=== PATIENT | male | born 1960 | race Caucasian/White ===

== ENCOUNTER 2019-05-31 15:43 | Outpatient (CLI) | payer MEDICARE ==
--- NOTE | 2019-05-31 16:02 | RAD ---
Exam: Chest 2 views HISTORY:Asthmatic bronchitis Comparison: 06/07/2013 FINDINGS: Lungs: No masses or consolidation. There is granulomatous calcification of the right lung, stable Radiopaque densities are again seen overlying the left axilla. Cardiac silhouette: Mild Enlargement Pulmonary vessels: Normal Pleural Spaces: Clear Pneumothorax: None Osseous abnormalities: None of acuity. IMPRESSION: Stable chest
== END 2019-05-31 15:44 | disposition home or self-care (01) ==
LOC: MADRAD 15:43
PROVIDERS: ATTEND Family Medicine
DX: J45.909 Unspecified asthma, uncomplicated (principal)
CPT/HCPCS: 71046

== ENCOUNTER 2020-02-09 01:24 | Emergency (ER) | payer MEDICARE ==
[2020-02-09] MEDS ORDERED: Acetaminophen/Codeine 30-300mg Tablet ONE (01:50)
--- NOTE | 2020-02-09 07:42 | RAD ---
EXAM: 3 views of the right ankle HISTORY: Right ankle pain after fall COMPARISON: None FINDINGS: 3 views of the right ankle shows a fracture of the distal fibula. There is widening of the medial clear space of the ankle. Moderate diffuse soft tissue tissue swelling is seen. No degenerative changes are present. IMPRESSION: Distal fibular fracture with slight malalignment of the tibiotalar joint
== END 2020-02-09 02:34 | disposition home or self-care (01) ==
LOC: MADERS 01:24
DX: S82.831A Other fracture of upper and lower end of right fibula, initial encounter for closed fracture (principal); I48.91 Unspecified atrial fibrillation; E78.5 Hyperlipidemia, unspecified; I10 Essential (primary) hypertension; F17.210 Nicotine dependence, cigarettes, uncomplicated; W18.30XA Fall on same level, unspecified, initial encounter

== ENCOUNTER 2021-03-20 15:08 | Outpatient (CLI) | payer MEDICARE | END 2021-03-20 15:09 | disposition home or self-care (01) | LOC: MADRAD 15:08 | PROVIDERS: ATTEND Family Medicine | DX: R05 Cough (principal) | CPT/HCPCS: 71046 ==

== ENCOUNTER 2021-06-29 18:43 | Emergency (ER) | payer MEDICARE ==
[2021-06-29] MEDS ORDERED: Sodium Chloride 0.9% 100 ML BAG IVPB ONE (18:44)
[2021-06-29] MEDS ORDERED: Iopamidol 370 76% 125 ML VIAL FS ONE (18:44)
[2021-06-29 19:28] LABS: INR-International Normal Ratio 0.9; PTT 25.1 sec (22.9-36.1); Prothrombin Time 12.4 sec (12.0-14.7)
[2021-06-29 19:33] LABS: #Basophils 0.1 thou/uL (0.0-0.2); #Eosinphils 0.1 thou/uL (0.0-0.7); #Lymphocytes 3.1 thou/uL (1.20-3.40); #Monocytes 0.8 thou/uL (0.11-0.59); #Neutrophils 4.4 thou/uL (1.40-6.50); %Basophils 1.4 % (0.0-1.0); %Eosinophils 1.7 % (0.0-10.0); %Lymphocytes 36.3 % (21.0-51.0); %Monocytes 9.1 % (0.0-10.0); %Neutrophils 51.5 % (42.0-75.0); Hemoglobin 15.4 g/dL (14.0-18.0); Mean Corpuscular HGB CONC 32.6 g/dL (32.0-36.0); Mean Corpuscular Hemoglobin 32.6 pg (27.0-31.0); Mean Corpuscular Volume 99.9 fL (78.0-98.0); Mean Platelet Volume 6.1 fL (7.4-10.4); Platelet Count 255 thou/uL (130-400); Red Blood Cell (RBC) Count 4.73 mill/uL (4.70-6.10); White Blood Cell (WBC) Count 8.6 thou/uL (4.8-10.8)
[2021-06-29 19:40] LABS: ALT (SGPT) 54 U/L (8-55); AST (SGOT) 38 U/L (5-34); Albumin 4.3 g/dL (3.5-5.0); Alkaline Phosphatase 60 U/L (40-110); Anion Gap 18 mmol/L (10-20); BUN (Urea Nitrogen) 15 mg/dL (8.4-25.7); Bilirubin, Total 0.8 mg/dL (0.2-1.2); CK (CPK) 33 U/L (30-200); Calc. Creatinine Clearance 0 mL/min (70-130); Calcium 10.3 mg/dL (7.8-10.44); Carbon Dioxide 23 mmol/L (22-29); Chloride 99 mmol/L (98-107); Globulin 2.9 g/dL (2.4-3.5); Glucose 153 mg/dL (70-105); Protein, Total 7.2 g/dL (6.0-8.3); Sodium 136 mmol/L (136-145)
[2021-06-29 19:41] LABS: CKMB 1.4 ng/mL (0-6.6)
[2021-06-29] MEDS ORDERED: Sodium Chloride 0.9% 500 ML ONE (19:52)
[2021-06-29 20:50] LABS: Bilirubin Negative (Negative); Blood, Urine Negative (Negative); Clarity Clear (Clear); Glucose, Urine (Dipstick) Negative (Negative); Ketone, Urine Negative (Negative); Leukocyte Negative (Negative); Nitrite Negative (Negative); Protein, Urine (Dipstick) Negative (Neg-Trace); Urobilinogen 0.2 mg/dL (Less than 2); pH, Urine 5.5 (5.0-9.0)
[2021-06-29 20:51] LABS: Specific Gravity, Urine 1.026 (1.002-1.036)
[2021-06-29 21:00] LABS: Amphetamine Not Detected (NotDetected); Barbiturates Screen Not Detected (NotDetected); Benzodiazepine Screen Detected (NotDetected); Cocaine Metabolite Screen Not Detected (NotDetected); Medtox Control Line Valid? VALID (VALID); Methadone Not Detected (NotDetected); Methamphetamine Not Detected (NotDetected); Opiate Screen Not Detected (NotDetected); Oxycodone Screen Not Detected (NotDetected); Phencyclidine (PCP) Not Detected (NotDetected); THC/Cannabinoid Screen Not Detected (NotDetected); Tricyclic Screen Not Detected (NotDetected)
== END 2021-06-29 21:30 | disposition home or self-care (01) ==
LOC: MADERS 18:43
DX: R55 Syncope and collapse (principal); I65.23 Occlusion and stenosis of bilateral carotid arteries; I10 Essential (primary) hypertension; I48.91 Unspecified atrial fibrillation; E78.5 Hyperlipidemia, unspecified; Z87.891 Personal history of nicotine dependence; Z79.899 Other long term (current) drug therapy
CPT/HCPCS: 70450; 70496; 70498; 71045; 80053; 80306; 81003; 82550; 82553; 83880; 84484; 85025; 85610; 85730; 93005; J3490; J7030; Q9967

== ENCOUNTER 2022-09-12 18:31 | Emergency (ER) | payer MEDICARE ==
[2022-09-12 20:12] LABS: Band 12 % (5-11); Hemoglobin 15.2 g/dL (14.0-18.0); Lymphocytes 19 % (21-51); MDiff Complete? YES; Mean Corpuscular HGB CONC 33.6 g/dL (32.0-36.0); Mean Corpuscular Hemoglobin 31.3 pg (27.0-31.0); Mean Corpuscular Volume 93.3 fl (78.0-98.0); Monocytes 6 % (0-10); Neutrophil 62 % (42-75); Platelet Count 179 10x3/uL (130-400); RBC Distribution Width 12.4 % (11.5-14.5); RBC Morphology Normal; Reactive Lymphocytes 1 % (0-10); Red Blood Cell (RBC) Count 4.84 mill/uL (4.70-6.10); White Blood Cell (WBC) Count 10.5 10x3/uL (4.8-10.8)
[2022-09-12 20:21] LABS: ALT (SGPT) 25 U/L (8-55); AST (SGOT) 23 U/L (5-34); Albumin 4.3 g/dL (3.4-4.8); Alkaline Phosphatase 96 U/L (40-110); Anion Gap 16 mmol/L (10-20); BUN (Urea Nitrogen) 11 mg/dL (8.4-25.7); Bilirubin, Total 1.2 mg/dL (0.2-1.2); Calc. Creatinine Clearance 0 mL/min (70-130); Calcium 10.6 mg/dL (7.8-10.44); Carbon Dioxide 25 mmol/L (23-31); Chloride 95 mmol/L (98-107); Estimated GFR 98; Globulin 3.4 g/dL (2.4-3.5); Glucose 241 mg/dL (80-115); Lipase 6 U/L (8-78); Magnesium 1.7 mg/dL (1.6-2.6); Potassium 4.4 mmol/L (3.5-5.1); Protein, Total 7.7 g/dL (5.8-8.1); Sodium 132 mmol/L (136-145)
[2022-09-12] MEDS ORDERED: ALPRAZolam 0.5 MG TAB ONE (20:35)
[2022-09-12] MEDS ORDERED: Lactated Ringer's 1,000 ML ONE (21:58)
== END 2022-09-12 23:12 | disposition home or self-care (01) ==
LOC: MADERS 18:31
DX: F41.9 Anxiety disorder, unspecified (principal); I10 Essential (primary) hypertension; E78.5 Hyperlipidemia, unspecified; E11.9 Type 2 diabetes mellitus without complications; Z87.891 Personal history of nicotine dependence; Z79.899 Other long term (current) drug therapy
CPT/HCPCS: 80053; 83690; 83735; 85025; 93005; 94760; 96360; J7120